=== PATIENT | female | born 1990 | race Caucasian/White ===

== ENCOUNTER 2019-02-01 07:35 | Inpatient (IN) | payer BC ==
[2019-02-01 09:27] VITALS: BMI 38.9
[2019-02-01 10:19] LABS: BASO % 0.3 % (0-2.0); EOS % 1.9 % (0-4.5); HEMATOCRIT 31.7 % (32.4-45.2); HEMOGLOBIN 10.5 GM/dL (10.7-15.3); LYMPH % 20.7 % (8-40); MCH 26.6 pg (25.7-33.7); MCHC 33.2 g/dl (32.0-36.0); MEAN PLT VOLUME 8.4 fl (7.5-11.1); MONO % 10.5 % (3.8-10.2); NEUT % 66.6 % (42.8-82.8); PLATELET COUNT 311 K/MM3 (134-434); RBC 3.96 M/mm3 (3.60-5.2); RDW 13.4 % (11.6-15.6); WHITE BLOOD COUNT 11.2 K/mm3 (4.0-10.0)
[2019-02-01 10:30] LABS: INR 1.02 (0.83-1.09)
[2019-02-01] MEDS: ELECTROLYTE-148 SOLN 1,000 ML IV SCH ×2 (10:40→17:44)
[2019-02-01 10:46] LABS: BLOOD UREA NITROGEN 8.5 mg/dL (7-18); CALCIUM 8.9 mg/dL (8.5-10.1); CREATININE 0.6 mg/dL (0.55-1.3); POTASSIUM 4.1 mmol/L (3.5-5.1)
[2019-02-01] MEDS ORDERED: OXYTOCIN 30 UNITS in 0.9% NS 30 UNIT/500 ML INFUS.BAG IVPB ONE (10:46)
[2019-02-01] MEDS ORDERED: BUTORPHANOL TARTRATE 1 MG/ML VIAL IVPB ONE (10:49)
[2019-02-01] MEDS ORDERED: OXYTOCIN 30 UNITS in 0.9% NS 30 UNIT/500 ML INFUS.BAG IVPB SCH (11:00)
[2019-02-01] MEDS ORDERED: LACTATED RINGERS SOLUTION 1,000 ML/1,000 ML INFUS.BAG IV SCH (11:00)
[2019-02-01] MEDS ORDERED: FENTANYL/BUPIVACAINE/NS/PF - PCEA - 50 ML DISP.SYRIN EP ONE (19:40)
[2019-02-01] MEDS ORDERED: BUPIVACAINE HCL/PF 2.5 MG/ML - 30 ML VIAL IJ ONE (19:41)
[2019-02-01] MEDS ORDERED: LIDO 2%/EPI 1:200000 PRESRVFRE (20 ML SDVIAL) ONE (19:41)
[2019-02-01] MEDS ORDERED: NALOXONE HCL 0.4 MG/ML VIAL IVPUSH PRN (20:47)
[2019-02-01] MEDS ORDERED: FENTANYL/BUPIVACAINE/NS/PF - PCEA - 50 ML DISP.SYRIN EP SCH (21:00)
--- NOTE | 2019-02-01 21:13 | PN ---
Progress Note (short form) - Note Progress Note: 7pm , attempted to arom, but i think she was already arom, requesting epidural, 2 cm, -2, 60 %, cervix is slightly more improved than this am , nst reactive, uc q 5 m
--- NOTE | 2019-02-01 21:15 | PN ---
Progress Note (short form) - Note Progress Note: 10 am, attempted arom, , but pt said she had more fluid came out over the night at home, had to changed 2 pds , nst reactive, uc irregular, will start pitocin for oligo and possible srom
--- NOTE | 2019-02-01 23:40 | HP ---
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: Alzheimer's, CVA, Dementia, Migraine, Multiple Sclerosis, Peripheral Neuropathy, Parkinson's, Seizure, Syncope, TIA, Vertigo, Other Cardiovascular: No: AFIB, Aneurysm, Aortic Insufficiency, Aortic Stenosis, CAD, CHF, Deep Vein Thrombosis, HTN, Hyperlipdemia, OK, Mitral Insufficiency, Mitral Stenosis, Murmur, Pulmonary Hypertension, Other Pulmonary: No: Asthma, Bronchitis, Cancer, COPD, O2 Dependent, Pneumonia, Previously Intubated, Pulmonary Embolus, Pulmonary Fibrosis, Sleep Apnea, Other Gastrointestinal: No: Ascites, Cancer, Constipation, Crohn's Disease, Diverticulitis, Diverticulosis, Esophageal Varices, Gastritis, GERD, GI Bleed, Hemorrhoids, Hiatal Hernia, Inflamatory Bowel Disease, Irritable Bowel Disease, Pancreatitis, Peptic Ulcer Disease, Ulcerative Colitis, Other Hepatobiliary: No: Cirrhosis, Cholelithiasis, Cholecystitis, Choledocholithiasis , Hepatitis A, Hepatitis B, Hepatitis C, Other Renal/: No: Renal Failure, Renal Inusuff, BPH, Cancer, Hematuria, Hemodialysis , Neurogenic Bladder, Renal Calculi, UTI, Other Reproductive: No: Ectopic , Endometriosis, Fibroids, PID, Polycystic Ovary Syndrome, Postmenopausal, Other ...: 3 ...Para: 1 ...Term: 0 ...: 1 ...Spon : 0 ...Induced : 1 ...LMP: 05/18/18 ... Weeks Gestation by Dates: 37.0 ...EDC by Dates: 02/22/19 Heme/Onc: No: Anemia, B12 Deficiency, Bleeding Disorder, Cancer, Current Chemotherapy, Current Radiation Therapy, Hemochromatosis, Hypercoaguable State, Myeloproliferative Synd, Sickle Cell Disease, Sickle Cell Trait, Thrombocytopenia, Other Infectious Disease: No: AIDS, C-Diff, Herpes Zoster, HIV, MRSA, STD's, Tuberculosis, VREF, Other Psych: No: Addictions, Anxiety, Bipolar, Depression, Panic, Psychosis, Schizophrenia, Other Musculoskeletal: No: Bursitis, Chronic low back pain, Hemiparesis, Hemiplegia, Osteoarthritis, Paraplegia, Other Rheumatology: No: Fibromyalgia, Gout, Lupus, Rheumatoid Arthritis, Sarcoidosis, Vasculitis, Other ENT: No: Allergic Rhinitis, Sinusitis, Other Endocrine: No: Everardo's Disease, Breanna's Disease, Diabetes Insipidus, Diabetes Mellitus, Hyperparathyroidism, Hyperthyroidism, Hypothyroidism, Osteopenia, SIADH, Other Dermatology: No: Basal Cell, Cellulitis, Eczema, Melanoma, Psoriasis, Squamous Cell, Other - Past Surgical History Past Surgical History: Yes: None, Oopherectomy. No: AAA Repair, AICD, Amputation, Appendectomy, Arthrosocopy, AV Fistula/Graft, Bariatric Surgery, Breast Biopsy, Bypass, CABG, Carotid Endarterectomy, Cataract Removal, Cholecystectomy, Colectomy, Colonoscopy, Colostomy, Craniotomy, , Cystectomy, Hernia Repair, Hysterectomy, Ileal Conduit, Ileosotomy, Joint Replacement, Kidney Transplant, Laminectomy, Liver Transplant, Mastectomy, Nephrectomy, Orchiectomy, Permanent Pacemaker, Prostatectomy, Splenectomy, Stent , Thoracotomy, TURP, Tonsillectomy, Tubal Ligation, Upper Endoscopy, Valve Replacement, Vasectomy, Vein Stripping/Ligation Hx Myomectomy: No Hx Transabdominal Cerclage: No - Advance Directives Advance Directives: Yes: Living Will - Smoking History Smoking history: Never smoked Have you smoked in the past 12 months: No - Alcohol/Substance Use Hx Alcohol Use: No History of Substance Use: reports: None - Social History Usual Living Arrangement: Yes: With Spouse Do you think of yourself as: Straight/Heterosexual ADL: Independent History of Recent Travel: No Home Medications - Allergies Allergies/Adverse Reactions: Allergies Allergy/AdvReac Type Severity Reaction Status Date / Time No Known Allergies Allergy Verified 02/01/19 09:48 - Home Medications Home Medications: Ambulatory Orders Glyburide [Diabeta -] 5 mg PO HS 12/28/18 Omeprazole Magnesium [Prilosec] 20 mg PO DAILY 12/28/18 Family Medical History Family History: Denies Review of Systems - Review of Systems Constitutional: reports: No Symptoms Eyes: reports: No Symptoms HENT: reports: No Symptoms Neck: reports: No Symptoms Cardiovascular: reports: No Symptoms Respiratory: reports: No Symptoms Gastrointestinal: reports: No Symptoms Genitourinary: reports: No Symptoms Breasts: reports: No Symptoms Reported Musculoskeletal: reports: No Symptoms Integumentary: reports: No Symptoms Neurological: reports: No Symptoms Endocrine: reports: No Symptoms Hematology/Lymphatic: reports: No Symptoms Psychiatric: reports: No Symptoms Physical Exam - Maternity Vital Signs: Vital Signs Temperature 98.5 F 02/01/19 21:56 Pulse Rate 100 H 02/01/19 22:30 Respiratory Rate 20 02/01/19 22:30 Blood Pressure 120/62 02/01/19 22:30 O2 Sat by Pulse Oximetry (%) 100 02/01/19 22:30 Constitutional: Yes: Well Nourished, No Distress, Calm Eyes: Yes: WNL, Conjunctiva Clear, EOM Intact HENT: Yes: WNL, Atraumatic, Normocephalic Neck: Yes: WNL, Supple, Trachea Midline Cardiovascular: Yes: WNL, Regular Rate and Rhythm Lungs: Clear to auscultation Breast(s): Yes: WNL - Abdominal Exam/OB Fundal Height: 36 Number of Fetuses: Single Presentation: Vertex Contractions: Yes Regularity: Irregular Intensity: Mild Monitor Mode: External Heart Rate Location: [facility] Category: I Accelerations: Uniform Decelerations: None - Vaginal Exam/OB Vaginal Bleediing: No Speculum Exam: No Dilatation (cm): 1 Effacement (%): 25 Amniotic Membrane Status: Leaking Amniotic Fluid: Yes: Clear Presentation: Vertex/Position Station: -2 - Physical Exam Musculoskeletal: Yes: WNL Extremities: Yes: WNL Edema: Yes Edema: LUE: 1+, RUE: 1+, LLE: 1+, RLE: 1+ Integumentary: Yes: WNL Deep Tendon Reflex Grade: Normal +2 ...Motor Strength: WNL Psychiatric: Yes: WNL, Alert, Oriented - Labs Lab Results: CBC, BMP 02/01/19 10:00 02/01/19 10:00 Assessment/Plan possible srom, cannot rule outed, oligo per sono gram , will induce . pt had hx of oligo last and induced at 36 weeks
--- NOTE | 2019-02-01 23:42 | PN ---
Progress Note (short form) - Note Progress Note: 1130 pm, co sob, co anxiety, co pelvic pressure, nst reactive, uc q 3 min, cx 8 cm 80 %, -1 to 0 station, pushing soon,
[2019-02-01] MEDS ORDERED: LIDOCAINE HCL 1% PRESERVATIVE FREE - 30ML VIAL ONE (23:47)
[2019-02-01] MEDS ORDERED: OXYTOCIN 20 UNITS in 0.9% NS 20 UNIT/1,000 ML INFUS.BAG IV ONE (23:47)
--- NOTE | 2019-02-02 00:18 | PN ---
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
[2019-02-02] MEDS ORDERED: oxyCODONE HCL 5 MG TABLET PO PRN (00:20)
[2019-02-02] MEDS ORDERED: WITCH HAZEL 50% (TUCKS) 40 PAD/JAR PAD TP PRN (00:20)
[2019-02-02] MEDS ORDERED: BENZOCAINE 28 GM HEMORRHOIDAL OINTMENT TP PRN (00:20)
[2019-02-02] MEDS ORDERED: METHYLERGONOVINE MALEATE 0.2 MG/1 ML AMP IM PRN (00:20)
[2019-02-02] MEDS ORDERED: BENZOCAINE 20% 57 GM BOTTLE TP PRN (00:20)
[2019-02-02] MEDS ORDERED: BISACODYL 10 MG SUPP.RECT RC PRN (00:20)
[2019-02-02] MEDS ORDERED: OXYTOCIN 20 UNITS in 0.9% NS 20 UNIT/1,000 ML INFUS.BAG IV ONE (02:34)
[2019-02-02] MEDS: IBUPROFEN 600 MG TABLET (FP) PO PRN ×2 (03:00→15:24)
[2019-02-02] MEDS: ACETAMINOPHEN 325 MG TABLET (FP) PO PRN ×2 (03:00→15:25)
[2019-02-02] MEDS ORDERED: IBUPROFEN 600 MG TABLET (FP) PO ONE (03:01)
[2019-02-02] MEDS ORDERED: ACETAMINOPHEN 325 MG TABLET (FP) ONE (03:01)
[2019-02-02] MEDS: OXYTOCIN 20 UNITS in 0.9% NS 20 UNIT/1,000 ML INFUS.BAG IV SCH (03:20)
[2019-02-02 08:13] LABS: BASO % 0.4 % (0-2.0); EOS % 0.2 % (0-4.5); HEMATOCRIT 31.3 % (32.4-45.2); HEMOGLOBIN 10.6 GM/dL (10.7-15.3); LYMPH % 12.5 % (8-40); MCH 26.9 pg (25.7-33.7); MCHC 33.7 g/dl (32.0-36.0); MEAN CELL VOLUME 79.8 fl (80-96); MEAN PLT VOLUME 8.7 fl (7.5-11.1); MONO % 7.5 % (3.8-10.2); NEUT % 79.4 % (42.8-82.8); PLATELET COUNT 289 K/MM3 (134-434); RBC 3.93 M/mm3 (3.60-5.2); RDW 13.2 % (11.6-15.6); WHITE BLOOD COUNT 17.9 K/mm3 (4.0-10.0)
[2019-02-03] MEDS: OXYTOCIN 20 UNITS in 0.9% NS 20 UNIT/1,000 ML INFUS.BAG IV SCH (00:58)
[2019-02-03 13:40] VITALS: BP 138/54; PULSE 79; TEMP 98.2
--- NOTE | 2019-02-03 16:38 | PN ---
Post Progress Note Post Day: 2 Type of Delivery: Vital Signs: Vital Signs Temperature 98.2 F 02/03/19 07:50 Pulse Rate 79 02/03/19 07:50 Respiratory Rate 18 02/03/19 07:50 Blood Pressure 138/54 L 02/03/19 07:50 O2 Sat by Pulse Oximetry (%) 100 02/02/19 01:30 Breast Exam: Yes: Soft Uterus: Yes: Fundus Firm, Fundus below umbilicus, Non-tender Abdomen/GI: Yes: Abdomen soft, Passing flatus, Tolerating PO Lochia: Yes: Serosa Lochia, amount: Small Extremities: Yes: Calves non-tender Perineum: Yes: Intact Activity: Ambulating - Labs Labs: CBC WBC 17.9 K/mm3 (4.0-10.0) H 02/02/19 07:48 RBC 3.93 M/mm3 (3.60-5.2) 02/02/19 07:48 Hgb 10.6 GM/dL (10.7-15.3) L 02/02/19 07:48 Hct 31.3 % (32.4-45.2) L 02/02/19 07:48 MCV 79.8 fl (80-96) L 02/02/19 07:48 MCH 26.9 pg (25.7-33.7) 02/02/19 07:48 MCHC 33.7 g/dl (32.0-36.0) 02/02/19 07:48 RDW 13.2 % (11.6-15.6) 02/02/19 07:48 Plt Count 289 K/MM3 (134-434) 02/02/19 07:48 MPV 8.7 fl (7.5-11.1) 02/02/19 07:48 Absolute Neuts (auto) 14.2 K/mm3 (1.5-8.0) H 02/02/19 07:48 Neutrophils % 79.4 % (42.8-82.8) 02/02/19 07:48 Lymphocytes % 12.5 % (8-40) D 02/02/19 07:48 Monocytes % 7.5 % (3.8-10.2) 02/02/19 07:48 Eosinophils % 0.2 % (0-4.5) D 02/02/19 07:48 Basophils % 0.4 % (0-2.0) 02/02/19 07:48 Nucleated RBC % 0 % (0-0) 02/02/19 07:48 Other Findings, Remarks: ambilating well, no complications Assessment/Plan dcpt home today
--- NOTE | 2019-02-03 16:41 | DS ---
Physical Exam-ERCO MACHINE OPERATOR Vital Signs: Vital Signs Temperature 98.2 F 02/03/19 07:50 Pulse Rate 79 02/03/19 07:50 Respiratory Rate 18 02/03/19 07:50 Blood Pressure 138/54 L 02/03/19 07:50 O2 Sat by Pulse Oximetry (%) 100 02/02/19 01:30 Constitutional: Yes: Well Nourished, No Distress, Calm Eyes: Yes: WNL, Conjunctiva Clear, EOM Intact HENT: Yes: WNL, Atraumatic, Normocephalic Neck: Yes: WNL, Supple, Trachea Midline Cardiovascular: Yes: WNL, Regular Rate and Rhythm Respiratory: Yes: WNL, Regular, CTA Bilaterally Gastrointestinal: Yes: WNL, Normal Bowel Sounds, Soft ...Rectal Exam: Yes: WNL Renal/: Yes: WNL Pelvis: Yes: WNL External Genitalia: Yes: Normal Internal Exam Deferred: No Vaginal Exam: Yes: Normal Cervix: Yes: Normal Uterus: Yes: Normal ....Post : Yes: Uterus firm, Uterus non-tender Breast(s): Yes: WNL Musculoskeletal: Yes: WNL Extremities: Yes: WNL Edema: Yes Edema: LUE: 1+, RUE: 1+, LLE: 1+, RLE: 1+ Integumentary: Yes: WNL Wound/Incision: Yes: Clean/Dry, Well Approximated Neurological: Yes: WNL, Alert, Oriented ...Motor Strength: WNL Psychiatric: Yes: WNL, Alert, Oriented Labs: CBC, BMP 02/02/19 07:48 02/01/19 10:00 Delivery - Delivery Vaginal Delivery: No Problems Maneuvers: none Type of Anesthesia: Epidural Episiotomy/Laceration: None EBL (cc): 200 Delivery, Single - Stages of Labor Date 1st Stage Initiatied: 02/01/19 Time 1st Stage Initiated: 19:30 Date 2nd Stage Initiated: 02/01/19 Time 2nd Stage Initiated: 23:53 Date of Delivery: 02/01/19 Time of Delivery: 23:57 Time Placenta Delivered: 00:01 Placenta: Yes: Spontaneous - 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 Infant Gender: Female Weight: 2.254 kg Position: Left, OA Total Hours ROM (Hrs/Mins): possible 14 hrs, - 1 Minute Total Score: 9 5 Minutes Total Score: 9 - Feeding Plan Initial Plan: Elected not to breastfeed exclusively throughout hospitalization Benefits of Exclusively reinforced: Yes Discharge Summary Problems reviewed: Yes Reason For Visit: INDUCTION OF LABOR oligo, possible srom Procedures: Principal: Other Procedures: none Hospital Course: uneventful Health Concerns: none Plan of Treatment: oob as much as possible Goals: return to work in 6 weeks Condition: Good - Instructions Diet, Activity, Other Instructions: regular , routine post care Disposition: HOME - Home Medications Comprehensive Discharge Medication List: Ambulatory Orders Glyburide [Diabeta -] 5 mg PO HS 12/28/18 Omeprazole Magnesium [Prilosec] 20 mg PO DAILY 12/28/18 Prescription Drug Monitoring Program (I-STOP) results: I-STOP reviewed and no issues identified
[2019-02-03] MEDS ORDERED: SENNOSIDES/DOCUSATE COMBO (SENNA PLUS) TABLET (UD) PO PRN (22:00)
== END 2019-02-03 19:00 | disposition home or self-care (01) | DRG 807 ==
LOC: JLDR 07:35 → J3W 02-02 03:05
PROVIDERS: ADMIT Obstetrics & Gynecology; ATTEND Obstetrics & Gynecology
PROC: 10E0XZZ Delivery of Products of Conception, External Approach (ICD-10-PCS; principal; 2019-02-01)
DX: O41.03X0 Oligohydramnios, third trimester, not applicable or unspecified (principal); Z37.0 Single live birth; Z3A.37 37 weeks gestation of pregnancy
CPT/HCPCS: 36415; 59409; 80048; 85025; 85610; 85730; 86593; 86850; 86900; 86901; 87340; 87389